=== PATIENT | female | born 1950 | race Caucasian/White ===

== ENCOUNTER 2022-06-16 13:47 | Inpatient (IN) | payer OTHER ==
[~2022-06-16] VITALS: Ht 165.1 cm; Wt 45.4 kg
[2022-06-16 14:22] LABS: HEMATOCRIT 29.5 % (31.2-41.9); MEAN CORPUSCULAR VOLUME 86.3 fL (75.5-95.3); PLATELET COUNT (AUTO) 668 K/uL (179-408)
[2022-06-16 14:36] LABS: BILIRUBIN,DIRECT 0.1 mg/dL (0.0-0.2); BILIRUBIN,TOTAL 0.3 mg/dL (0.2-1.0); CREATININE 2.3 mg/dL (0.6-1.3); POTASSIUM 3.9 mmol/L (3.5-5.1); TOTAL PROTEIN, SERUM 8.1 g/dL (6.4-8.2)
--- NOTE | 2022-06-16 14:54 | NUR ---
Urine specimen sent to lab.
[2022-06-16] MEDS ORDERED: IV NORMAL SALINE 1000 ML BAG IV ONE (15:00)
[2022-06-16 15:05] LABS: *BILIRUBIN,URIN NEGATIVE (NEGATIVE); *BLOOD, URINE 3+ (NEGATIVE); *CLARITY,URINE CLOUDY (CLEAR); *COLOR,URINE YELLOW (YELLOW); *KETONES,URINE NEGATIVE (NEGATIVE); *UROBILINOGEN,URINE 0.2 E.U./dl (NORMAL); LEUKOCYTE ESTERASE ,URINE 3+ (NEGATIVE); NITRITE, URINE POSITIVE (NEGATIVE); UGLUCOSE NEGATIVE (NEGATIVE)
[2022-06-16] MEDS ORDERED: ONDA-104 PO (15:05)
[2022-06-16] MEDS ORDERED: INSU100I52 SQ (15:05)
[2022-06-16] MEDS ORDERED: HYDR-3972 MT (15:05)
[2022-06-16] MEDS ORDERED: LEVO50TA8 PO (15:05)
[2022-06-16] MEDS ORDERED: GABA-532 PO (15:05)
[2022-06-16] MEDS ORDERED: COLL30OI TP (15:05)
[2022-06-16] MEDS ORDERED: DICL100G31 TP (15:05)
[2022-06-16 15:16] LABS: RBC,URINE TNTC /HPF (0-3); WBC,URINE TNTC /HPF (0-3)
[2022-06-16 15:17] LABS: BACTERIA,URINE MANY /HPF (NONE SEEN); SQUAMOUS EPITHELIAL CELL,UR FEW /HPF (NONE SEEN)
[2022-06-16] MEDS ORDERED: HYDROCODONE/APAP 5-325MG TABLET PO PRN (17:45)
[2022-06-16] MEDS ORDERED: DEXTROSE 50% 50 ML DISP.SYRIN IV PRN (17:45)
[2022-06-16] MEDS: GABAPENTIN 100 MG CAPSULE PO SCH ×2 (17:45→18:44)
[2022-06-16] MEDS ORDERED: ONDANSETRON HCL 4 MG TABLET PO PRN (17:45)
[2022-06-16] MEDS ORDERED: METHOCARBAMOL 500 MG TABLET PO PRN (18:00)
--- NOTE | 2022-06-16 18:30 | NUR ---
Spoke with Víctor from patient's insurance stated he will call back with a peer to peer for patient.
[2022-06-16] MEDS ORDERED: CEFTRIAXONE 2 G VIAL ONE (18:31)
[2022-06-16] MEDS: CEFTRIAXONE 2 G in IV DEXTROSE 5% 100 ML IV SCH (18:44)
[2022-06-16] MEDS: BLOOD SUGAR DIAGNOSTIC 1 EACH STRIP VI SCH ×2 (18:44→21:14)
--- NOTE | 2022-06-16 18:52 | NUR ---
Patient resting in bed, easily arousable. No acute distress noted at this moment. Safety precautions in place. Will continue to monitor patient.
--- NOTE | 2022-06-16 19:05 | NUR ---
Report from CALE Schultz.
--- NOTE | 2022-06-16 19:13 | NUR ---
Patient to go to room 301A.
--- NOTE | 2022-06-16 19:57 | NUR ---
Report given to CALE Wiley. - Malachi Pina
--- NOTE | 2022-06-16 20:45 | NUR ---
Patient transferred to room 301 via stretcherSTEFANIE made aware of patient's arrival.
--- NOTE | 2022-06-16 21:00 | NUR ---
RECEIVED PATIENT VIA GURNEY FROM ER. PATIENT IS A/O X3. DUTCH SPEAKING, BUT ABLE TO MAKE NEEDS KNOWN. VSS. HEPLOCK INTACT AND PATENT. BED ALARM ON. CALL LIGHT IN REACH. ALL NEEDS ATTENDED.
[2022-06-16 21:05] VITALS: BP 143/67
[2022-06-16] MEDS: INSULIN REGULAR, HUMAN 300 UNITS/3 ML VIAL SQ PRN (21:14)
[2022-06-17 04:32] VITALS: BP 130/46
[2022-06-17] MEDS: LEVOTHYROXINE SODIUM 50 MCG TABLET PO SCH (06:10)
[2022-06-17] MEDS: BLOOD SUGAR DIAGNOSTIC 1 EACH STRIP VI SCH ×4 (06:16→20:41)
[2022-06-17] MEDS: GABAPENTIN 100 MG CAPSULE PO SCH ×3 (08:09→16:20)
[2022-06-17] MEDS: ASCORBIC ACID 500 MG TABLET PO SCH (08:16)
[2022-06-17] MEDS: ZINC SULFATE 220 MG CAPSULE GT SCH (08:16)
[2022-06-17 08:39] LABS: IRON, SERUM 26 ug/dL (50-175)
[2022-06-17] MEDS: THERAHONEY GEL 1.5 OZ TUBE TOP SCH (10:37)
[2022-06-17] MEDS ORDERED: IV NS 1000 ML 1,000 ML IV ONE (11:00)
[2022-06-17] MEDS: INSULIN REGULAR, HUMAN 300 UNIT/3 ML VIAL SQ PRN ×2 (11:23→20:45)
[2022-06-17 11:45] LABS: *BILIRUBIN,URIN NEGATIVE (NEGATIVE); *BLOOD, URINE 3+ (NEGATIVE); *CLARITY,URINE CLOUDY (CLEAR); *COLOR,URINE YELLOW (YELLOW); *KETONES,URINE NEGATIVE (NEGATIVE); *UROBILINOGEN,URINE 0.2 E.U./dl (NORMAL); LEUKOCYTE ESTERASE ,URINE 3+ (NEGATIVE); NITRITE, URINE POSITIVE (NEGATIVE); PH,URINE 5.5 (5.0-8.0); UGLUCOSE NEGATIVE (NEGATIVE)
[2022-06-17 11:51] LABS: *CREATININE,URINE 42.2 mg/dL (30-125); *URINE TOTAL PROTEIN RANDOM 98.2 mg/dL (<150/24HR)
[2022-06-17 12:00] VITALS: BP 136/62
--- NOTE | 2022-06-17 12:50 | NUR ---
Pt refused renal ultrasound
--- NOTE | 2022-06-17 14:24 | NUR ---
WOUND CARE CONSULT: PT PRESENTS WITH SACRAL UNSTAGEABLE PRESSURE ULCER AND SOME DISCOLORATION TO RT LOWER EXTREMITY, PRESENT ON ADMISSION. PT IS INCONTINENT OF STOOL. ESTEFANAI GOLDMAN NOTED. RECOMMENDATIONS MADE FOR SKIN PROTECTION. DISCUSSED WITH NURSING STAFF. DR GARCIA CALLED FOR SURGICAL CONSULT. IN AGREEMENT WITH PLAN OF CARE. Addendum: 06/17/22 at 1426 by KELSY GARZA RN Amended: Links added.
[2022-06-17] MEDS ORDERED: HYDROCODONE/APAP 5-325MG TABLET PO PRN ×2 (15:15)
[2022-06-17 16:00] VITALS: BP 112/49
[2022-06-17] MEDS: CEFTRIAXONE 2 G in IV DEXTROSE 5% 100 ML IV SCH (17:02)
[2022-06-17 19:04] LABS: HEMATOCRIT 28.1 % (31.2-41.9); MEAN CORPUSCULAR HEMOGLOBIN 28.3 uug (24.7-32.8); MEAN CORPUSCULAR VOLUME 88.9 fL (75.5-95.3); PLATELET COUNT (AUTO) 511 K/uL (179-408)
[2022-06-17 19:20] LABS: CREATININE 2.1 mg/dL (0.6-1.3); POTASSIUM 4.5 mmol/L (3.5-5.1)
[2022-06-17] MEDS ORDERED: THERAHONEY GEL 1.5 OZ TUBE TOP SCH (19:45)
[2022-06-17 19:53] LABS: BACTERIA,URINE MANY /HPF (NONE SEEN); RBC,URINE 0-3 /HPF (0-3); SQUAMOUS EPITHELIAL CELL,UR FEW /HPF (NONE SEEN); URINE AMORPHOUS URATE MANY /HPF; WBC,URINE NONE SEEN /HPF (0-3)
[2022-06-17 20:00] VITALS: BP 124/48
[2022-06-17] MEDS: PROTEIN SUPPLEMENT (PROSTAT) 30 ML LIQUID PO SCH ×2 (20:00→20:42)
[2022-06-18 05:52] VITALS: BP 101/44
[2022-06-18] MEDS ORDERED: SILVER NITRATE APPLICATOR STICK EACH TP ONE (06:00)
[2022-06-18] MEDS ORDERED: LIDOCAINE 1%-EPI 1:100,000 20 ML VIAL IJ ONE (06:00)
[2022-06-18] MEDS: LEVOTHYROXINE SODIUM 50 MCG TABLET PO SCH (06:20)
[2022-06-18] MEDS: BLOOD SUGAR DIAGNOSTIC 1 EACH STRIP VI SCH ×4 (06:37→20:18)
[2022-06-18 06:49] LABS: HEMATOCRIT 27.6 % (31.2-41.9); MEAN CORPUSCULAR HEMOGLOBIN 28.1 uug (24.7-32.8); MEAN CORPUSCULAR VOLUME 87.6 fL (75.5-95.3); PLATELET COUNT (AUTO) 637 K/uL (179-408)
[2022-06-18 07:29] LABS: BILIRUBIN,TOTAL 0.3 mg/dL (0.2-1.0); CREATININE 2.1 mg/dL (0.6-1.3); PHOSPHOROUS 4.2 mg/dL (2.5-4.9)
[2022-06-18] MEDS: INSULIN REGULAR, HUMAN 300 UNIT/3 ML VIAL SQ PRN ×4 (07:46→20:20)
[2022-06-18] MEDS: ZINC SULFATE 220 MG CAPSULE GT SCH (08:05)
[2022-06-18] MEDS: PROTEIN SUPPLEMENT (PROSTAT) 30 ML LIQUID PO SCH ×3 (08:05→16:43)
[2022-06-18] MEDS: ASCORBIC ACID 500 MG TABLET PO SCH (08:05)
[2022-06-18] MEDS: GABAPENTIN 100 MG CAPSULE PO SCH ×3 (08:05→16:43)
[2022-06-18 08:36] LABS: TOTAL PROTEIN, SERUM 7.9 g/dL (6.4-8.2)
[2022-06-18] MEDS: THERAHONEY GEL 1.5 OZ TUBE TOP SCH (08:59)
[2022-06-18 11:40] VITALS: BP 146/55
[2022-06-18] MEDS ORDERED: LIDOCAINE 2%-EPI 1:100,000 20 ML VIAL IJ ONE (15:15)
[2022-06-18 15:40] VITALS: BP 90/34
[2022-06-18] MEDS: CEFTRIAXONE 2 G in IV DEXTROSE 5% 100 ML IV SCH (17:07)
[2022-06-18] MEDS ORDERED: IV NORMAL SALINE 500 ML IV ONE (17:15)
[2022-06-18 20:00] VITALS: BP 131/51
[2022-06-18] MEDS: MUPIROCIN 2% OINT 22 GM TUBE NS SCH (20:17)
[2022-06-19 04:01] VITALS: BP 119/50
[2022-06-19] MEDS: LEVOTHYROXINE SODIUM 50 MCG TABLET PO SCH (06:04)
[2022-06-19] MEDS: BLOOD SUGAR DIAGNOSTIC 1 EACH STRIP VI SCH ×4 (06:05→21:02)
[2022-06-19 06:31] LABS: HEMATOCRIT 28.4 % (31.2-41.9); MEAN CORPUSCULAR HEMOGLOBIN 28.1 uug (24.7-32.8); MEAN CORPUSCULAR VOLUME 87.1 fL (75.5-95.3); PLATELET COUNT (AUTO) 600 K/uL (179-408)
[2022-06-19 06:41] LABS: CREATININE 2.2 mg/dL (0.6-1.3); PHOSPHOROUS 4.6 mg/dL (2.5-4.9); POTASSIUM 3.9 mmol/L (3.5-5.1); URIC ACID 8.3 mg/dL (2.6-6.0)
[2022-06-19 06:46] LABS: THYROID STIMULATING HORMONE 1.477 mIU/mL (0.358-3.740)
[2022-06-19] MEDS: PROTEIN SUPPLEMENT (PROSTAT) 30 ML LIQUID PO SCH ×3 (08:00→17:00)
[2022-06-19] MEDS: THERAHONEY GEL 1.5 OZ TUBE TOP SCH (09:00)
[2022-06-19] MEDS: ZINC SULFATE 220 MG CAPSULE GT SCH (10:07)
[2022-06-19] MEDS: ASCORBIC ACID 500 MG TABLET PO SCH (10:07)
[2022-06-19] MEDS: GABAPENTIN 100 MG CAPSULE PO SCH ×3 (10:07→17:45)
[2022-06-19] MEDS: MUPIROCIN 2% OINT 22 GM TUBE NS SCH ×2 (10:08→21:02)
[2022-06-19 11:06] LABS: CALCITRIOL VIT D,1,25 DIHYDROX 23.2 pg/mL (24.8-81.5)
[2022-06-19 11:36] VITALS: BP 160/58
[2022-06-19] MEDS: NUTRISOURCE FIBER 4 GM PACKET PO SCH ×2 (11:41→17:45)
[2022-06-19 12:07] LABS: A/G RATIO 0.5 (0.7-1.7); ALBUMIN 2.3 g/dL (2.9-4.4); ALPHA-1-GLOBULIN 0.3 g/dL (0.0-0.4); ALPHA-2-GLOBULIN 1.1 g/dL (0.4-1.0); GAMMA GLOBULIN 2.1 g/dL (0.4-1.8); GLOBULIN, TOTAL 4.6 g/dL (2.2-3.9); M-SPIKE Not Observed g/dL (Not Observed)
[2022-06-19 15:11] LABS: FERRITIN 416 ng/mL (8-252)
[2022-06-19 16:04] VITALS: BP 138/66
[2022-06-19] MEDS: CEFTRIAXONE 2 G in IV DEXTROSE 5% 100 ML IV SCH (18:19)
[2022-06-19] MEDS: INSULIN REGULAR, HUMAN 300 UNITS/3 ML VIAL SQ PRN ×2 (18:58→21:03)
--- NOTE | 2022-06-19 19:09 | NUR ---
SHIFT NOTE: RECEIVED PT IN AM WITH FAMILY AT BEDSIDE LATER IN AFTERNOON PT REFUSED BONE SURVEY DR. WHITESIDE SAW PT INFORMED HIM PT REFUSED BONE SURVEY PROCEDURE NO SIGNS OF RESPIRATORY DISTRESS NOTED. FALL AND SAFETY MAINTAINED MEDICATION GIVEN ORDERED. AC BLOOD SUGAR IS 140 GAVE PATIENT 2 UNITS OF REGULAR INSULIN NO SIGNS OF DIABETIC REACTION NOTED. WILL ENDORSE TO NIGHT NURSE.
[2022-06-19 20:00] VITALS: BP 123/59
--- NOTE | 2022-06-19 23:00 | NUR ---
1919- The patient is aox3. Mostly indian speaking. The patient is on an air mattress. The patient has a patent IV access on her right hand that is clean, dry, and intact. The patient has a humphries catheter that is patent, clean, and intact, and below the bladder. The patient is not complaining of pain. Bed at lowest position, wheels lock, two side rails up, bed alarm on. Call light within reach. Will continue to monitor throughout the shift. Changed sacrum dressing for wound. Dressing clean, dry, and intact. 2199- Collected urine specimen at MD request. Dropped specimen at laboratory. The patient has no complains of pain. Will continue to monitor throughout the shift.
[2022-06-20 04:00] VITALS: BP 141/67
[2022-06-20] MEDS: LEVOTHYROXINE SODIUM 50 MCG TABLET PO SCH (06:33)
[2022-06-20 06:39] LABS: HEMATOCRIT 29.9 % (31.2-41.9); MEAN CORPUSCULAR HEMOGLOBIN 28.5 uug (24.7-32.8); MEAN CORPUSCULAR VOLUME 87.2 fL (75.5-95.3); PLATELET COUNT (AUTO) 571 K/uL (179-408)
[2022-06-20 07:24] LABS: MAGNESIUM 2.1 mg/dL (1.8-2.4); PHOSPHOROUS 4.2 mg/dL (2.5-4.9)
[2022-06-20] MEDS: BLOOD SUGAR DIAGNOSTIC 1 EACH STRIP VI SCH ×4 (07:30→21:30)
[2022-06-20] MEDS: ZINC SULFATE 220 MG CAPSULE GT SCH (08:11)
[2022-06-20] MEDS: ASCORBIC ACID 500 MG TABLET PO SCH (08:11)
[2022-06-20] MEDS: PROTEIN SUPPLEMENT (PROSTAT) 30 ML LIQUID PO SCH ×3 (08:12→17:01)
[2022-06-20] MEDS: GABAPENTIN 100 MG CAPSULE PO SCH ×3 (08:12→16:59)
[2022-06-20] MEDS: ARGININE/GLUTAMINE/CALCIUM BMB 1 EACH POWD.PACK PO SCH ×2 (08:13→16:59)
[2022-06-20] MEDS: NUTRISOURCE FIBER 4 GM PACKET PO SCH ×2 (08:14→17:00)
[2022-06-20] MEDS: INSULIN REGULAR, HUMAN 300 UNIT/3 ML VIAL SQ PRN (08:36)
[2022-06-20] MEDS: THERAHONEY GEL 1.5 OZ TUBE TOP SCH (09:16)
[2022-06-20] MEDS: MUPIROCIN 2% OINT 22 GM TUBE NS SCH ×2 (09:26→21:28)
[2022-06-20] MEDS: FERROUS SULFATE 325 MG TABEC PO SCH ×2 (11:16→21:28)
[2022-06-20] MEDS ORDERED: CALCITONIN,SALMON,SYNTHETIC 3.7 ML SPRAY.PUMP NS SCH (11:30)
[2022-06-20 11:45] VITALS: BP 130/63
[2022-06-20 12:07] LABS: A/G RATIO 0.5 (0.7-1.7); ALBUMIN 2.2 g/dL (2.9-4.4); ALPHA-1-GLOBULIN 0.4 g/dL (0.0-0.4); ALPHA-2-GLOBULIN 1.1 g/dL (0.4-1.0); GLOBULIN, TOTAL 4.4 g/dL (2.2-3.9); M-SPIKE Not Observed g/dL (Not Observed)
[2022-06-20 12:29] LABS: *BILIRUBIN,URIN NEGATIVE (NEGATIVE); *BLOOD, URINE 2+ (NEGATIVE); *CLARITY,URINE CLOUDY (CLEAR); *COLOR,URINE YELLOW (YELLOW); *KETONES,URINE NEGATIVE (NEGATIVE); *UROBILINOGEN,URINE 0.2 E.U./dl (NORMAL); LEUKOCYTE ESTERASE ,URINE 2+ (NEGATIVE); NITRITE, URINE NEGATIVE (NEGATIVE); PH,URINE 5.5 (5.0-8.0); UGLUCOSE NEGATIVE (NEGATIVE)
[2022-06-20] MEDS ORDERED: PAMIDRONATE DISODIUM 60 MG in IV NORMAL SALINE 500 ML IV ONE (15:00)
[2022-06-20 15:45] VITALS: BP 109/67
--- NOTE | 2022-06-20 17:42 | NUR ---
Pt. has been stable through out the shift. Kiswahili speaking. No c/o pain, able to make the need known. Skin treatment done. Pt. has been compliance with the care given. Urine collected and sent to lab. Needs stool sample but no episode of bowel movement noted and will endorse to next shift for the sample need. will keep monitoring the patient.
[2022-06-20 19:00] LABS: BACTERIA,URINE RARE /HPF (NONE SEEN); RBC,URINE 20-50 /HPF (0-3); SQUAMOUS EPITHELIAL CELL,UR FEW /HPF (NONE SEEN); WBC,URINE 20-50 /HPF (0-3)
[2022-06-20 19:01] LABS: YEAST,URINE MODERATE /HPF (NONE SEEN)
[2022-06-20 20:00] VITALS: BP 110/78
[2022-06-20] MEDS: CEFTRIAXONE 2 G in IV DEXTROSE 5% 100 ML IV SCH (20:42)
[2022-06-20] MEDS: INSULIN REGULAR, HUMAN 300 UNITS/3 ML VIAL SQ PRN (21:33)
[2022-06-21 04:00] VITALS: BP 114/57
[2022-06-21] MEDS: LEVOTHYROXINE SODIUM 50 MCG TABLET PO SCH (06:15)
[2022-06-21] MEDS: BLOOD SUGAR DIAGNOSTIC 1 EACH STRIP VI SCH ×4 (06:46→21:50)
[2022-06-21 07:26] LABS: CREATININE 2.1 mg/dL (0.6-1.3); PHOSPHOROUS 3.6 mg/dL (2.5-4.9); POTASSIUM 4.3 mmol/L (3.5-5.1)
[2022-06-21 07:36] LABS: HEMATOCRIT 28.3 % (31.2-41.9); MEAN CORPUSCULAR HEMOGLOBIN 28.8 uug (24.7-32.8); MEAN CORPUSCULAR VOLUME 87.6 fL (75.5-95.3); PLATELET COUNT (AUTO) 620 K/uL (179-408)
[2022-06-21] MEDS: PROTEIN SUPPLEMENT (PROSTAT) 30 ML LIQUID PO SCH ×3 (08:14→16:22)
[2022-06-21] MEDS: FERROUS SULFATE 325 MG TABEC PO SCH ×2 (08:15→21:50)
[2022-06-21] MEDS: GABAPENTIN 100 MG CAPSULE PO SCH ×3 (08:15→16:08)
[2022-06-21] MEDS: ASCORBIC ACID 500 MG TABLET PO SCH (08:15)
[2022-06-21] MEDS: ARGININE/GLUTAMINE/CALCIUM BMB 1 EACH POWD.PACK PO SCH ×2 (08:15→16:21)
[2022-06-21] MEDS: ZINC SULFATE 220 MG CAPSULE GT SCH (08:15)
[2022-06-21] MEDS: NUTRISOURCE FIBER 4 GM PACKET PO SCH ×2 (08:16→16:22)
[2022-06-21] MEDS: MUPIROCIN 2% OINT 22 GM TUBE NS SCH ×2 (08:20→21:50)
[2022-06-21] MEDS: THERAHONEY GEL 1.5 OZ TUBE TOP SCH (08:24)
[2022-06-21 11:23] VITALS: BP 138/60
[2022-06-21] MEDS: INSULIN REGULAR, HUMAN 300 UNIT/3 ML VIAL SQ PRN (11:25)
[2022-06-21 13:20] LABS: *OCCULT BLOOD STOOL NEGATIVE (NEGATIVE)
[2022-06-21 15:10] LABS: BETA-2 MICROGLOBULIN, SERUM 9.6 mg/L (0.6-2.4)
[2022-06-21 16:03] VITALS: BP 124/53
--- NOTE | 2022-06-21 17:03 | NUR ---
Pt. has been stable during the shift. Gambian speaking. No c/o pain. Skin treatment done. Pt. has been compliance with the care given. Pt. is scheduled for CT and waiting for the result. will keep monitoring the patient.
[2022-06-21] MEDS: CEFTRIAXONE 2 G in IV DEXTROSE 5% 100 ML IV SCH (17:52)
[2022-06-21] MEDS ORDERED: Blood Sugar Diagnostic VI (20:27)
[2022-06-21] MEDS ORDERED: ASCO500T21 PO (20:27)
[2022-06-21] MEDS ORDERED: MUPI22OI2 NS (20:27)
[2022-06-21] MEDS ORDERED: MENT113O TOP (20:27)
[2022-06-21] MEDS ORDERED: PROT30LI PO (20:27)
[2022-06-21] MEDS ORDERED: FERR325T28 PO (20:27)
[2022-06-21] MEDS ORDERED: CEFT2VIA13 IJ (20:27)
[2022-06-21] MEDS ORDERED: HYDR-3972 PO (20:27)
[2022-06-21] MEDS ORDERED: METH-806 PO (20:27)
[2022-06-21] MEDS ORDERED: ZINC1CAP3 GT (20:27)
[2022-06-21] MEDS ORDERED: INSU100V28 SQ ×2 (20:27)
[2022-06-21] MEDS ORDERED: Wheat Dextrin PO (20:27)
[2022-06-21] MEDS: INSULIN REGULAR, HUMAN 300 UNITS/3 ML VIAL SQ PRN (21:52)
--- NOTE | 2022-06-21 23:00 | NUR ---
1900-The patient is aox3. Mostly azeri speaking. The patient is on an air mattress. The patient has a patent IV access on her right hand that is clean, dry, and intact. The patient has a humphries catheter that is patent, clean, and intact, and below the bladder. The patient is not complaining of pain. Bed at lowest position, wheels lock, two side rails up, bed alarm on. Call light within reach. Will continue to monitor throughout the shift. Changed sacrum dressing for wound. Dressing clean, dry, and intact. 2100- The requested for and extra blanket. Item is given to the patient. Will continue to monitor thnroughout the shift. 0000- The patient is asleep and has no complains of pain or sob. Will continue to monitor throughout the shift.
[2022-06-22] MEDS: LEVOTHYROXINE SODIUM 50 MCG TABLET PO SCH (06:26)
[2022-06-22 07:08] LABS: HEMATOCRIT 25.8 % (31.2-41.9); MEAN CORPUSCULAR HEMOGLOBIN 29.1 uug (24.7-32.8); MEAN CORPUSCULAR VOLUME 86.6 fL (75.5-95.3); PLATELET COUNT (AUTO) 613 K/uL (179-408)
[2022-06-22] MEDS: BLOOD SUGAR DIAGNOSTIC 1 EACH STRIP VI SCH ×2 (07:30→11:37)
[2022-06-22 07:32] LABS: MAGNESIUM 1.9 mg/dL (1.8-2.4); PHOSPHOROUS 2.7 mg/dL (2.5-4.9)
--- NOTE | 2022-06-22 08:56 | NUR ---
PER REPORT FROM MADYSON SHERIDAN RN,PATIENT BLOOD SUGAR IS 191.
[2022-06-22 09:00] VITALS: BP 125/49
[2022-06-22] MEDS: ASCORBIC ACID 500 MG TABLET PO SCH (09:02)
[2022-06-22] MEDS: FERROUS SULFATE 325 MG TABEC PO SCH (09:02)
[2022-06-22] MEDS: PROTEIN SUPPLEMENT (PROSTAT) 30 ML LIQUID PO SCH ×2 (09:02→13:05)
[2022-06-22] MEDS: GABAPENTIN 100 MG CAPSULE PO SCH ×2 (09:02→12:56)
[2022-06-22] MEDS: ZINC SULFATE 220 MG CAPSULE GT SCH (09:02)
[2022-06-22] MEDS: ARGININE/GLUTAMINE/CALCIUM BMB 1 EACH POWD.PACK PO SCH (09:03)
[2022-06-22] MEDS: NUTRISOURCE FIBER 4 GM PACKET PO SCH (09:03)
[2022-06-22] MEDS: THERAHONEY GEL 1.5 OZ TUBE TOP SCH (09:03)
[2022-06-22] MEDS: MUPIROCIN 2% OINT 22 GM TUBE NS SCH (09:03)
[2022-06-22] MEDS: INSULIN REGULAR, HUMAN 300 UNITS/3 ML VIAL SQ PRN (09:06)
[2022-06-22 12:00] VITALS: BP 132/50
[2022-06-22] MEDS: INSULIN REGULAR, HUMAN 300 UNIT/3 ML VIAL SQ PRN (12:55)
[2022-06-22] MEDS ORDERED: FLUCONAZOLE 200 MG/NS 100ML IV 100 MG in PREMIXED 1 EACH IV SCH (13:00)
[2022-06-22] MEDS ORDERED: ACETAMINOPHEN 325 MG TABLET PO PRN (15:45)
[2022-06-22] MEDS ORDERED: ACETAMINOPHEN 650 MG SUPP.RECT RC PRN (15:45)
--- NOTE | 2022-06-22 15:46 | NUR ---
PATIENT NOTED TO HAVE FEVER 100.3*F. RN NOTIFIED MD. PER MD, GIVE TYLENOL & PATIENT ABLE TO BE DISCHARGE TODAY. PATIENT WILL CONTINUE TAKING ANTIBIOTIC AT [facility].
[2022-06-22 15:50] VITALS: BP 129/49
--- NOTE | 2022-06-22 17:20 | NUR ---
RECEIVED REPORT FROM MADYSON SHERIDAN RN. PATIENT IS ALERT & ORIENTED X2-3, AND SPEAKS [place]. PATIENT TENDS TO BE QUITE AND LIKES TO KEEP TO HERSELF. PATIENT TOLERATES PILLS AND DIET, HOWEVER PATIENT NOTED TO REFUSE SOME PARTS OF MEALS. PATIENT MAC CATHETER PATENT AND DRAINING. VITAL SIGNS STABLE, WITH EXCEPTION OF TEMPERATURE. RN INITIATED COOLING MEASURES PER PROTOCOL. RN ADMIN TYLENOL. PATIENT'S TEMPERATURE BETTER CONTROLLED. RN NOTIFIED MD, PER MD PATIENT STILL OKAY TO BE DISCHARGE. WOUND TREATMENT COMPLETED. FALL PRECAUTIONS IN PLACE. REPOSITIONED Q2 PROTOCOL. RN CALLED TO GIVE REPORT TO CALE COBOS AT [facility]. ALL QUESTIONS ANSWERED. PER CALE COBOS, REQUESTED TO KEEP IV ON THE RIGHT HAND IN. IF NOT NEEDED CALE COBOS, WILL REMOVE IV CATHETER. RN GIVES REPORT TO EMT [facility]. ALL QUESTIONS ANSWERED. PATIENT LEFT IN STABLE CONDITION WITH [facility].
[2022-06-22] MEDS ORDERED: FLUC200T8 PO (17:29)
[2022-06-25 06:07] LABS: *PEU ALBUMIN, UR 13.9 % (.); *PEU ALPHA-2-GLOBULIN, UR 29.2 % (.); *PEU GAMMA GLOBULIN, UR 20.5 % (.); *PEU PROTEIN, TOTAL, UR 58.3 mg/dL (Not Estab.); *PEUALPHA-1-GLOBULIN, UR 4.2 % (.); *PEUBETA GLOBULIN, UR 32.2 % (.)
--- NOTE | 2022-06-25 09:44 | NUR ---
06/16/22: ROCEPHIN 2G IN 100ML D5W END TIME 8020
== END 2022-06-22 17:20 | DRG 853 ==
LOC: ER 13:47 → MEDSURG3 20:08
PROVIDERS: ADMIT Internal Medicine; ATTEND Internal Medicine
PROC: 0KBP0ZZ Excision of Left Hip Muscle, Open Approach (ICD-10-PCS; principal; 2022-06-18)
PROC: 0KBN0ZZ Excision of Right Hip Muscle, Open Approach (ICD-10-PCS; 2022-06-18)
DX: A41.9 Sepsis, unspecified organism (principal); E43 Unspecified severe protein-calorie malnutrition; L89.154 Pressure ulcer of sacral region, stage 4; N17.0 Acute kidney failure with tubular necrosis; G93.41 Metabolic encephalopathy; N39.0 Urinary tract infection, site not specified; Z68.1 Body mass index [BMI] 19.9 or less, adult; G95.89 Other specified diseases of spinal cord; M84.58XA Pathological fracture in neoplastic disease, other specified site, initial encounter for fracture; J98.11 Atelectasis; J90 Pleural effusion, not elsewhere classified; B37.49 Other urogenital candidiasis; D75.839 Thrombocytosis, unspecified; E83.52 Hypercalcemia; E88.09 Other disorders of plasma-protein metabolism, not elsewhere classified; I25.10 Atherosclerotic heart disease of native coronary artery without angina pectoris; Z79.82 Long term (current) use of aspirin; Z85.51 Personal history of malignant neoplasm of bladder; Z87.81 Personal history of (healed) traumatic fracture; Z86.73 Personal history of transient ischemic attack (TIA), and cerebral infarction without residual deficits; E03.9 Hypothyroidism, unspecified; D50.9 Iron deficiency anemia, unspecified; N18.9 Chronic kidney disease, unspecified; E86.9 Volume depletion, unspecified; E11.22 Type 2 diabetes mellitus with diabetic chronic kidney disease; B96.20 Unspecified Escherichia coli [E. coli] as the cause of diseases classified elsewhere; K80.20 Calculus of gallbladder without cholecystitis without obstruction; Z20.822 Contact with and (suspected) exposure to COVID-19
CPT/HCPCS: 36415; 71045; 71250; 82378; 82652; 82784; 83550; 83735; 83935; 83970; 84100; 84155; 84156; 84165; 84166; 84300; 84443; 84550; 85025; 85730; 86334; 87040; A6209; A6213; G0378; J0696; J1450; J1815; J2430; J3490; J7040